=== PATIENT | female | born 1955 | race Caucasian/White ===

== ENCOUNTER 2021-07-08 14:34 | Outpatient (CLI) | payer MEDICARE, MEDICAID, SELFPAY ==
--- NOTE | 2021-07-08 14:42 | MM_ITS ---
WS: [id number] Exam: [id number] Date/Time of Exam: 07/08/2021 3:33 PM Reason For Exam: SCREENING VIEWS: MLO and CC views both breasts. Comparison made with prior exam of 06/10/2014. Findings: There was no sign of mass, architectural distortion or suspicious calcification in either breast. Sc attered fibroglandular densities MM/[place] [id number] Impression: BI-RADS: 2-Benign FOLLOW-UP: 1 Year Follow-up This mammogram was also analyzed by the Computer Aided Detection System [employer].
== END 2021-07-08 14:35 | disposition home or self-care (01) ==
LOC: RADSHAW 14:40
PROVIDERS: PCP Nurse Practitioner Family; Visit Provider Nurse Practitioner Family
DX: Z12.31 Encounter for screening mammogram for malignant neoplasm of breast (principal)
CPT/HCPCS: 77067

== ENCOUNTER → 2022-07-06 09:55 | Outpatient (BNVA) | payer MEDICARE, MEDICAID, SELFPAY | PROVIDERS: PCP Nurse Practitioner Family; Visit Provider Thoracic Surgery (Cardiothoracic Vascular Surgery) | DX: I71.21 Aneurysm of the ascending aorta, without rupture (principal) | CPT/HCPCS: 99203 ==

== ENCOUNTER 2023-06-11 09:24 | Outpatient (CLI) | payer MEDICARE, MEDICAID, SELFPAY ==
--- NOTE | 2023-06-11 10:00 | USCV_ITS ---
Charanjit Morejon Age: 67 Gender: F : 1955 Exam Date: 06/11/2023 09:51 Ordering Phys: Bean Alfred MD (Andy) ([email or web address]) Technologist: Exam Location: [facility] – [place] Indication: dizzy Risk Factors: Previous Vascular Surgery: Right Brachial BP: / Left Brachial BP: / Right Left Velocity (cm/s) Spectral Plaque Velocity (cm/s) Spectral Plaque Syst/Diast Broadening Syst/Diast Broadening 76.10/ 18.70 Prox CCA 88.20 / 17.60 63.90/ 24.30 Mid CCA 84.90 / 23.20 52.90/ 17.60 Distal CCA 91.50 / 19.80 57.30/ 14.30 Prox ICA 87.10 / 18.70 79.40/ 27.60 Mid ICA 81.60 / 15.40 94.80/ 30.90 Distal ICA 92.60 / 23.20 62.80 ECA 115.80 1.25 ICA/CCA 1.01 Antegrade Vertebral Antegrade 52.90/ 14.30 cm/s 52.90/ 15.40 cm/s Tri Subclavian Tri FINDINGS Comparison: none available. No significant elevation of systolic or diastolic velocities. Waveforms are normal. No significant amount of calcified plaque or intimal thickening identified. CONCLUSIONS Normal carotid doppler ultrasound. Dr. Maria Fernanda Rincon DO (Electronically Signed) Final Date: 11 June 2023 13:05 S
[2023-06-11 10:12] LABS: Blood Urea Nitrogen 14 mg/dL (8-23); Glomerular Filtration Rate 71.1 mL/min (90-130)
[2023-06-11] MEDS: iohexol 350 mg/mL 500 mL Btl (per mL) IV (10:22)
--- NOTE | 2023-06-11 11:00 | CT_ITS ---
WS: [id number] CTA THORACIC AORTA WITH AND WITHOUT CONTRAST HISTORY: ascending aortic aneurysm TECHNIQUE: CT imaging of the thorax is performed with and without contrast. After noncontrast imaging is performed, CT angiogram is performed during injection of Omnipaque 350; 100 mL IV.. Sagittal and coronal reconstructions, sagittal and coronal MIP imaging is submitted. All CT scans at [facility] use at least one of these dose optimization techniques: automated exposure control; mA and/or k V adjustment per patient size (includes targeted exams where dose is matched to clinical indication); or iterative reconstruction. DLP: 535.44 mGy.cm COMPARISON: None available. Mildly ectatic but not aneurysmal atherosclerotic changes within the ascending thoracic aorta. Ascend ing aorta maximum diameter of 3.5 cm. No dilatation of the aortic annulus. Descending aorta measures 2.5 cm. There is mild atherosclerotic plaque within the aorta. Few calcified plaques with mild intima l thickening. No dissection. Scattered coronary artery calcifications. Normal sized pulmonary artery. Heart is normal size. Mild L EFT atrial enlargement. Chronic emphysema. Hyperinflated lungs. Newly completely calcified nodule LEFT lower lobe. Noncalcifi ed micronodule LEFT lower lobe, image 28 of series 8. Mediastinal and hilar lymph nodes are not enlar ged. Several of the hilar lymph nodes are calcified. Moderate size hiatal hernia. No adrenal mass. Tricuspid regurgitation into the hepatic veins. Mild anterior wedging and Schmorl's nodes at T10 and T11. IMPRESSION: 1. Mildly ectatic but not aneurysmal ascending thoracic aorta. Maximum diameter of 3.5 cm. 2. Mild atherosclerosis thoracic aorta. 3. Micronodule LEFT lower lobe and a benign granuloma LEFT lower lobe. 4. No mediastinal or hilar adenopathy. 5. Moderate size hiatal hernia.
== END 2023-06-11 09:25 | disposition home or self-care (01) ==
PROVIDERS: PCP Nurse Practitioner Family; Visit Provider Thoracic Surgery (Cardiothoracic Vascular Surgery)
DX: I77.810 Thoracic aortic ectasia (principal); I65.23 Occlusion and stenosis of bilateral carotid arteries; I70.0 Atherosclerosis of aorta; R91.1 Solitary pulmonary nodule; Z86.79 Personal history of other diseases of the circulatory system
CPT/HCPCS: 71275; 82565; 84520; 93880; Q9967

== ENCOUNTER → 2023-06-19 12:31 | Outpatient (BNVA) | payer MEDICARE, MEDICAID, SELFPAY | PROVIDERS: PCP Nurse Practitioner Family; Visit Provider Thoracic Surgery (Cardiothoracic Vascular Surgery) | DX: I71.21 Aneurysm of the ascending aorta, without rupture (principal) | CPT/HCPCS: 99213 ==

== ENCOUNTER → 2025-01-08 12:12 | Outpatient (BNVA) | payer MEDICARE, MEDICAID, SELFPAY | PROVIDERS: PCP Nurse Practitioner Family; Visit Provider Internal Medicine | DX: R07.9 Chest pain, unspecified (principal); I10 Essential (primary) hypertension; R00.1 Bradycardia, unspecified | CPT/HCPCS: 93005; 99204 ==

== ENCOUNTER → 2025-01-08 12:51 | Outpatient (BNVA) | payer MEDICARE, MEDICAID, SELFPAY | PROVIDERS: PCP Nurse Practitioner Family; Visit Provider Internal Medicine | DX: R00.2 Palpitations (principal); I49.8 Other specified cardiac arrhythmias; I49.3 Ventricular premature depolarization; I49.1 Atrial premature depolarization; I47.10 Supraventricular tachycardia, unspecified; R00.1 Bradycardia, unspecified | CPT/HCPCS: 93242 ==

== ENCOUNTER 2025-02-23 11:41 | Outpatient (CLI) | payer MEDICARE, MEDICAID, SELFPAY ==
--- NOTE | 2025-02-23 | ECG_ITS ---
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 Interpretive Statements EXERCISE STRESS TEST EXERCISE DATA: The patient was exercised by Tree protocol. Baseline heart rate was 79 beats per minute. Baseline blood pressure was 140/81 millimeters of mercury. Maximal predicted heart rate was 149 beats per minute. Maximum heart rate achieved was 139, which was 93% of the maximum predicted heart rate. Maximum blood pressure was 201/79 millimeters of mercury. Total exercise time was 3 minutes. Maximum METs achieved was 4.6. The reason for ending the test was completion of protocol. The patient complained of [] during the stress test, which then resolved at the end of the test. ELECTROCARDIOGRAM: BASELINE: Showed sinus rhythm, normal axis, no significant ST-T changes at the baseline noted. [] EXERCISE: At the peak exercise level, [] No significant ST-T changes suggestive of ischemia noted. [] RECOVERY: During the recovery period, heart rate dropped appropriately. No significant ST-T changes in the recovery suggestive of ischemia noted. [] CONCLUSION: 1. Exercise capacity is poor 2. Heart rate response was appropriate 3. Blood pressure response was appropriate 4. Symptoms not suggestive of ischemia. 5. Stress test was not suggestive of ischemia. Electronically Signed On 03-14-2025 13:53:21 CDT by Niles Amaro M.D. [email or web address]
[2025-02-23 12:02] VITALS: BMI 23.1
[2025-02-23 12:45] VITALS: BP 150/71; PULSE 55
== END 2025-02-23 11:42 | disposition home or self-care (01) ==
LOC: CDL 11:42
PROVIDERS: PCP Nurse Practitioner Family; Visit Provider Internal Medicine
DX: R07.9 Chest pain, unspecified (principal); R06.02 Shortness of breath
CPT/HCPCS: 93017

== ENCOUNTER → 2025-04-16 10:36 | Outpatient (BNVA) | payer MEDICARE, MEDICAID, SELFPAY | PROVIDERS: PCP Nurse Practitioner Family; Visit Provider Nurse Practitioner Family | DX: I10 Essential (primary) hypertension (principal); R00.1 Bradycardia, unspecified; Z91.014 Allergy to mammalian meats; M19.012 Primary osteoarthritis, left shoulder; M19.011 Primary osteoarthritis, right shoulder | CPT/HCPCS: 99213 ==